=== PATIENT | female | born 1965 | race Caucasian/White ===

== ENCOUNTER 2025-07-05 19:02 | Emergency (ER) | payer OTHER, SELFPAY ==
[2025-07-05 19:13] VITALS: BP 109/66
[2025-07-05 19:29] LABS: Hematocrit 37.2 % (37.0-47.0); Hemoglobin 12.7 g/dL (12.0-16.0); Mean Corp Hgb Conc. 34.1 g/dL (33.0-37.0); Mean Corpuscular Volume 90.5 fL (81.0-99.0); Nucleated Red Blood Cells % 0 %; Platelet Count 325 10^3/uL (130-400); Red Cell Dist. Width 12.1 % (11.5-14.5)
[2025-07-05 19:46] LABS: ALT (SGPT) 33 U/L (0-35); AST (SGOT) 22 U/L (14-36); Albumin 4.0 g/dl (3.5-5.0); Alkaline Phosphatase 82 U/L (38-126); Blood Urea Nitrogen 22 mg/dl (7-17); Calcium 9.7 mg/dl (8.4-10.2); Carbon Dioxide 27 mmol/L (22-30); Chloride 108 mmol/L (98-107); Glucose 93 mg/dl (70-99); Potassium 3.9 mmol/L (3.5-5.1); Sodium 141 mmol/L (135-145); Total Protein 6.2 g/dl (6.3-8.2); eGFR > 60.00
[2025-07-05 19:59] LABS: Troponin I < 0.012 ng/ml
[2025-07-05 22:02] VITALS: BP 111/77
--- NOTE | 2025-07-05 22:05 | ED.GENMED ---
History of Present Illness
General
Chief Complaint: Cardiac Symptoms
Source: patient
Exam Limitations: none
Time Seen by Provider: 07/05/25 21:52
History of Present Illness
History of Present Illness:
60yoF with no significant past medical history presenting for evaluation of multiple complaints. Patient has been having intermittent throbbing L groin pain for the past several weeks. She did hurt her L ankle 3 months ago and tore a tendon and
has been going to physical therapy. She has been having L leg pain since then. She started to have worsening groin pain today as well as generalized abdominal pain and pain underneath her L breast. She had a heaviness in her chest earlier today
which has resolved. She called to schedule an appointment with a PCP today and was told to go to the ED for evaluation. She has a PCP appt scheduled in 3 days.
Phy Exam
General Physical Exam
General Presentation: well appearing and no apparent distress
General Skin: warm and dry
General Habitus: normal
General Mental: alert
ENT Exam
ENT Exam: normocephalic
Cardiovascular Exam
Cardiovascular Exam: regular rate/rhythm, no edema and no murmur
Pulmonary Exam
Pulmonary Exam: lungs clear, no respiratory distress, no rales, no crackles and no wheezing
Gastrointestinal Exam
Gastrointestinal Exam: soft, non distended and other (Mild generalized abdominal tenderness. No palpable hernia. No rebound or guarding.)
Neurological Exam
Neurological Exam: alert
[place] Coma Scale
Eye Opening: Spontaneous
Verbal Response: Oriented
Motor Response: Obeys Commands
GCS Total Score: 15
Musculoskeletal Exam
Musculoskeletal Exam: other (LLE normal to inspection without skin changes or edema)
Skin Exam
Skin Exam: normal color and warm/dry
Psychiatric Exam
Psychiatric Exam: normal mood/affect
Course
Orders/Labs/Results
Orders:
Orders
07/05/25 19:16
Electrocardiogram (*1) Urgent
Reason for Study: Palpitations
EKG- Treatment ONCE
07/05/25 19:24
Complete Blood Count/With Diff Urgent
Comprehensive Metabolic Panel Urgent
Troponin I Urgent
07/05/25 22:17
Electrocardiogram (*1) Urgent
Reason for Study: Chest Pain
Cardiac Monitoring- Treatment ONCE
EKG- Treatment ONCE
Venous Doppler Lwr Ext Left [US Periph Venous LOWER Ext LT] Urgent
Comment:
Reason For Exam: L lower leg pain
07/05/25 23:25
Troponin I Urgent
07/06/25 00:00
CT Abd/pelvis W Iv Cont Urgent
Reason For Exam: abd pain, L groin pain
CR Chest - 2 Views Urgent
Reason For Exam: pain underneath L breast
Abnormal Lab Results
07/05/25
19:24
RBC 4.11 L 10^6/uL
(4.20-5.40)
Chloride 108 H mmol/L
(98-107)
BUN 22 H mg/dl
(7-17)
Total Protein 6.2 L g/dl
(6.3-8.2)
07/05/25 19:24
07/05/25 19:24
Vital Signs
Initial and Last Documented VS:
Initial Vital Signs
Temp Pulse Resp BP Pulse Ox
98.3 F 68 16 109/66 97
07/05/25 19:13 07/05/25 19:13 07/05/25 19:13 07/05/25 19:13 07/05/25 19:13
Last Documented Vital Signs
Temp Pulse Resp BP Pulse Ox
98.3 F 59 12 100/67 97
07/05/25 19:13 07/06/25 01:30 07/06/25 01:30 07/06/25 01:00 07/06/25 01:15
MDM/Problems Addressed
Differential Diagnosis Includes:
60yoF here with multiple complaints. L groin pain x several weeks. Now with generalized abd pain and pain underneath L breast. Had CP earlier today. VSS. She is well-appearing in no acute distress. Exam is reassuring. No signs of peritonitis on
abdominal exam. Differential diagnosis includes but is not limited to: Musculoskeletal, splenomegaly, diverticulitis, hernia, DVT, ACS
Initial ED plan: Workup initiated in triage. EKG shows normal sinus rhythm without ischemic changes and troponin within normal limits. Will check repeat troponin/EKG, chest x-ray, venous duplex, and CT abdomen.
*Pulse Oximetry
SaO2: 97
Oxygen Mode of Delivery: Room air
Patient hypoxic: no (97%)
*EKG
Interpreted by ED Provider?: Yes
EKG Intrepretation Date: 07/05/25
Heart Rate: 67
Rate: normal
Rhythm: sinus
[place]: normal axis
Interval: normal interval
QRS Pattern: normal QRS
Ischemia: no ischemia
*Critical Care Note
Total Time (30-74mins, 75-104mins- exclusive of procedures): Not Applicable
Update Note
Update Note:
Repeat EKG and troponin unchanged. Venous duplex negative for DVT. Preliminary [facility] report is negative for acute findings. Chest x-ray appears normal per my interpretation. No telemetry events throughout ED stay. No indication for
hospitalization. She does have an appointment scheduled with her PCP in 3 days so will have close follow-up. She was discharged in stable condition.
ED Attending Note
-
Portions of this chart may have been created with voice recognition software.� Occasional wrong word or��sound alike� substitutions may have occurred due to the inherent limitations of voice recognition software.
Discharge Plan
Departure
Patient Disposition: Home (Routine Discharge)
Date of Disposition: 07/06/25
Time of Disposition: 01:29
Patient with high blood pressure during this ER visit?: No
Discharge Problem:
Left groin pain, Chest heaviness
Instructions: Chest Pain (DC)
Referrals:
NONE,* [Family Provider, Internal Medicine]
Activity Restrictions/Additional Instructions:
Please follow-up with your family doctor on Tuesday as previously scheduled. Return to the ER with any new or worsening symptoms.
Interventions
Interventions:
*Risk Screen - Suicide Last Done: 07/05/25 19:15
*General Assessment Last Done: 07/06/25 01:46
*Neglect/Abuse Screening Last Done: 07/05/25 19:15
*ED- Fall Risk Assessment Last Done: 07/06/25 01:46
*ED COVID-19 Vaccine History Last Done: 07/06/25 01:46
*Nursing Disposition Last Done: 07/06/25 01:46
ED- Pulmonary Assessment Last Done: 07/05/25 22:27
ED- Cardiac Assessment Last Done: 07/05/25 22:27
Discharge Date and Time
Discharge Date/Time: 07/06/25 01:47
Print Language: ICELANDIC
[2025-07-05 23:52] VITALS: BP 105/66
[2025-07-06 00:06] LABS: Troponin I < 0.012 ng/ml
[2025-07-06 00:58] VITALS: BP 106/68
[2025-07-06 01:00] VITALS: BP 100/67
== END 2025-07-06 01:47 | disposition home or self-care (01) ==
LOC: EMR 19:02
PROVIDERS: Physician Assistant; Student in an Organized Health Care Education/Training Program; EMERGENCY PHYSICIAN Emergency Medicine
DX: R10.32 Left lower quadrant pain (principal); R07.9 Chest pain, unspecified
CPT/HCPCS: 99285; 71046; 74177; 80053; 84484; 85025; 93005; 93971; Q9967